=== PATIENT | female | born 1935 | race Caucasian/White ===

== ENCOUNTER 2018-03-05 03:40 | Emergency (ER) | payer MEDICAID ==
[~2018-03-05] VITALS: Ht 152.4 cm; Wt 75.7 kg
[2018-03-05 03:47] VITALS: Ht 152.4 cm; Wt 75.7 kg
[2018-03-05 04:50] LABS: BASOPHIL % 0.4 % (0-2); PLATELET COUNT 245 x10^3mcL (130-400); RED CELL DISTRIBUTION WIDTH 13.9 % (11.5-14.5)
[2018-03-05 05:24] LABS: UA SPECIFIC GRAVITY <=1.005 (1.005-1.035); microscopic required? YES; urine erythrocyte NEGATIVE (NEGATIVE)
[2018-03-05 05:27] LABS: CHLORIDE SERUM 99 mmol/L (98-107); SODIUM SERUM 137 mmol/L (136-145)
[2018-03-05 05:28] LABS: ALBUMIN 3.8 g/dL (3.4-5.0); ALT/SGPT 32 U/L (14-59); AST/SGOT 26 U/L (15-37); BILIRUBIN TOTAL 0.4 mg/dL (0.20-1.00); CALCIUM 9.2 mg/dL (8.5-10.1); CARBON DIOXIDE 27 mmol/L (21-32); CREATININE SERUM 0.7 mg/dL (0.6-1.0); GLUCOSE SERUM 120 mg/dL (74-106)
[2018-03-05 05:29] LABS: ALKALINE PHOSPHATASE 100 U/L (46-116); LIPASE 61 IU/L (73-393)
[2018-03-05 07:32] VITALS: BP 140/68
== END 2018-03-05 07:32 | disposition home or self-care (01) ==
LOC: ED 03:40
PROVIDERS: Emergency Medicine
DX: E87.6 Hypokalemia (principal); I10 Essential (primary) hypertension; E11.9 Type 2 diabetes mellitus without complications
CPT/HCPCS: 82962; J7040; Q0092

== ENCOUNTER 2019-01-14 00:37 | Inpatient (IN) | payer MEDICAID ==
[~2019-01-14] VITALS: Ht 149.9 cm; Wt 78.0 kg
[2019-01-14 00:52] VITALS: Ht 149.9 cm; Wt 78.0 kg
--- NOTE | 2019-01-14 01:06 | NUR ---
PT AAOX4, NO S/S OF DISTESS NOTED, RESPIRATIONS EVEN AND UNLABORED. PER PT DAUGHTER PT C/O L ARM AND CHEST PAIN SINCE 0800. PT DESCRIBES THE PAIN PRESSURE AND RADIATES TO LEFT SIDE OF THE STOMACH. PT REPORTS SIMILIAR PAIN TO THE LEFT SHOULDER FROM "ARTHRITIS". PT HOOKED UP TO SUPERVISOR FERTILIZER, NSR. PT HOOOKED UP TO PULSE OX, PT SAT @ 97% ON RA. DR. MAY AT BEDSIDE PERFORMING MSE.
--- NOTE | 2019-01-14 01:44 | NUR ---
PT DENIES CHEST PAIN 5 MIN AFTER THE ADMINISTRATION OF 40. TAB OF NITROSTAT SL
[2019-01-14 01:48] LABS: BASOPHIL % 1.2 % (0-2); PLATELET COUNT 235 x10^3mcL (130-400); RED CELL DISTRIBUTION WIDTH 13.4 % (11.5-14.5)
[2019-01-14 01:52] LABS: CALCIUM 9.1 mg/dL (8.5-10.1); CARBON DIOXIDE 30.2 mmol/L (21-32); CHLORIDE SERUM 100 mmol/L (98-107); CREATININE SERUM 0.7 mg/dL (0.6-1.0); GLUCOSE SERUM 128 mg/dL (74-106); POTASSIUM SERUM 3.7 mmol/L (3.5-5.1); SODIUM SERUM 136 mmol/L (136-145)
--- NOTE | 2019-01-14 01:59 | NUR ---
PT AMBULATED TO AND FROM BATHROOM WITH STEADY GAIT. PT INSTRUCTED TO GIVE URINE SAMPLE AND HOW TO GIVE GIVE CLEAN CATCH SAMPLE.
[2019-01-14 02:01] LABS: ALBUMIN 3.9 g/dL (3.4-5.0); ALKALINE PHOSPHATASE 112 U/L (46-116); ALT/SGPT 26 U/L (14-59); AST/SGOT 20 U/L (15-37); BILIRUBIN TOTAL 0.3 mg/dL (0.20-1.00)
[2019-01-14 02:02] LABS: TOTAL PROTEIN, SERUM 8.3 g/dL (6.4-8.2)
--- NOTE | 2019-01-14 03:09 | NUR ---
XRAY AT BEDSIDE PERFORMING MSE.
--- NOTE | 2019-01-14 03:48 | NUR ---
PT SITTING UP IN BED, TALKING WITH DAUGHTER AT BEDSIDE. NO S/S OF DISTRESS NOTED.
--- NOTE | 2019-01-14 04:28 | NUR ---
PT C/O SHOUDLER PAIN RATED 8/10. PT REPORTS SHE THINKS PAIN IS ARTHRITIS PAIN SHE REGULARLY EXPERIENCES. DR MAY NOTIFIED AND PRESCRIBED MORPHINE IV. PT REFUSED STATING SHE HAS HAD ADVERSE REACTIONS TO THE MEDICAITON OF LOW BP, N/V DIZZINESS AND SWEATING. PT AND FAMILY EDUCATED ON THE BENEFITS AND RISKS OF REFUSING MEDICATION. PT EDUCATED ON SYMPTOMS OF [place]. DR MAY MADE AWARE AND PRESCRIBED NORCO 5/325 PO. PT ADMINISTERED MEDICATION.
--- NOTE | 2019-01-14 05:02 | NUR ---
PT ASLEEP IN BED, VISIBLE RISE AND FALL OF CHEST, RESPIRATIONS EVEN AND UNLABORED. PT IS EASILY AROUSABLE AND REPORTS PAIN IN HER SHOULDER HAS GONE AWAY AND DENIES PAIN AT THIS TIME.
[2019-01-14] MEDS ORDERED: GLUCOTROL10 MG PO (05:15)
[2019-01-14] MEDS ORDERED: SIMVASTATIN20 M1 PO (05:15)
[2019-01-14] MEDS ORDERED: NOR10 PO (05:16)
[2019-01-14] MEDS ORDERED: METFORMIN HCL1000 MG PO (05:16)
[2019-01-14] MEDS ORDERED: JANUVIA100 M1 PO (05:17)
[2019-01-14] MEDS ORDERED: COZAAR100 MG PO (05:17)
--- NOTE | 2019-01-14 06:17 | NUR ---
PT SLEEPING, EASILY AROUSABLE. DAUGHTER IS AT BEDSIDE.
--- NOTE | 2019-01-14 07:22 | NUR ---
REPORT RECEIVED FROM PAT CHANDLER
--- NOTE | 2019-01-14 08:10 | NUR ---
PT GIVEN BRAKFAST TRAY. SITTING HIGH FOWLERS EATING WITH VSS AND NO DISTRESS NOTED
--- NOTE | 2019-01-14 09:22 | NUR ---
REPORT GIVEN TO MARYJANE STEWART
--- NOTE | 2019-01-14 09:38 | NUR ---
RECEIVED PATIENT FROM ER NURSE AT THIS TIME. PATIENT ABLE TO AMBULATE FROM GURNEY TO BED WITH NO ASSISTIVE DEVICES. PATIENT A/O X4 AND ABLE TO MAKE NEEDS KNOWN. BREATHING EVEN AND UNLABORED. NO RESPIRATORY DISTRESS OR DISCOMFORT NOTED. PATIENT DENIES CHEST PAIN AT THIS TIME. TELE [address] PULSES PALPABLE. NO EDEMA NOTED. BOWEL SOUNDS ACTIVE BM X1 TODAY. VOIDS FREELY WITH NO C/O BURNING/DISCOMFORT AT THIS TIME. IV TO LEFT HAND PATENT AND INTACT. ALL QUESTIONS AND CONCERNS ADDRESSED. FAMILY AT BEDSIDE. ALL NEEDS ATTENDED TO. WILL CONTINUE TO MONITOR
[2019-01-14 10:35] VITALS: BP 174/68
[2019-01-14 13:40] VITALS: BP 131/50
--- NOTE | 2019-01-14 14:07 | NUR ---
PATIENT STABLE TO BE DISCHARGED TO HOME. DISCHARGE INSTRUCTIONS GIVEN WELL EDUCATION. INSTRUCTED PATIENT AND FAMILY ABOUT FOLLOW UP APPOINTMENT. THEY VERBALIZE UNDERSTANDING. IV REMOVED WITH CATH INTACT. ID BANDS REMOVED. TELE MONITOR 13 REMOVED AND RETURNED TO DIGITAL MEDIA REPRESENTATIVE. ALL BELONGINGS WITH PATIENT. ALL QUESTIONS AND CONCERNS ADDRESSED. ALL NEEDS ATTENDED TO. ESCORTED DOWN TO THE LOBBY BY RN AT THIS TIME
--- NOTE | 2019-01-14 14:34 | NUR ---
Discount pharmacy card and list to low cost medical clinics given to patient by Juan.
== END 2019-01-14 14:07 | disposition home or self-care (01) | DRG 346 ==
LOC: ED 00:37 → DU 04:13
PROVIDERS: Emergency Medicine; ADMIT Family Medicine
DX: M06.812 Other specified rheumatoid arthritis, left shoulder (principal); E11.65 Type 2 diabetes mellitus with hyperglycemia; R07.89 Other chest pain; I10 Essential (primary) hypertension; Z79.84 Long term (current) use of oral hypoglycemic drugs; Z68.34 Body mass index [BMI] 34.0-34.9, adult
CPT/HCPCS: 83880; 85378; Q0092

== ENCOUNTER 2019-10-20 08:23 | Inpatient (IN) | payer MEDICAID ==
[~2019-10-20] VITALS: Ht 149.9 cm; Wt 76.3 kg
[~2019-10-20 08:23] MED LIST: COZAAR100 MG PO; GLUCOTROL10 MG PO; JANUVIA100 M1 PO; METFORMIN HCL1000 MG PO; NOR10 PO; SIMVASTATIN20 M1 PO
[2019-10-20 08:26] VITALS: Ht 149.9 cm; Wt 76.3 kg
[2019-10-20 09:04] LABS: BASOPHIL % 0.2 % (0-2); PLATELET COUNT 232 x10^3mcL (130-400); RED CELL DISTRIBUTION WIDTH 13.6 % (11.5-14.5)
[2019-10-20 09:19] LABS: CALCIUM 9.2 mg/dL (8.5-10.1); CARBON DIOXIDE 28.7 mmol/L (21-32); CHLORIDE SERUM 100 mmol/L (98-107); CREATININE SERUM 0.7 mg/dL (0.6-1.0); GLUCOSE SERUM 307 mg/dL (74-106); POTASSIUM SERUM 3.7 mmol/L (3.5-5.1); SODIUM SERUM 136 mmol/L (136-145)
[2019-10-20 09:23] LABS: ALBUMIN 3.7 g/dL (3.4-5.0); ALKALINE PHOSPHATASE 123 U/L (46-116); ALT/SGPT 23 U/L (14-59); AST/SGOT 11 U/L (15-37); BILIRUBIN TOTAL 0.4 mg/dL (0.20-1.00)
[2019-10-20 09:24] LABS: TOTAL PROTEIN, SERUM 8.3 g/dL (6.4-8.2)
[2019-10-20 09:46] LABS: microscopic required? YES; urine erythrocyte TRACE (NEGATIVE)
[2019-10-20 10:13] LABS: MAGNESIUM 1.9 mg/dL (1.8-2.4); T4(THYROXINE) 9.1 ug/dL (4.7-13.3)
[2019-10-20] MEDS ORDERED: SYLVANT100 MG PO (12:17)
[2019-10-20] MEDS ORDERED: SIMVASTATIN20 M1 PO (12:17)
[2019-10-20] MEDS ORDERED: ZITHROMAX Z-PA250 MG PO (12:18)
[2019-10-20] MEDS ORDERED: MICROZIDE12.5 MG PO (12:18)
[2019-10-20] MEDS ORDERED: METHYLPREDNISOLO PO (12:18)
[2019-10-20 15:37] VITALS: BP 166/106
[2019-10-20 21:08] VITALS: BP 140/56
[2019-10-21 05:57] VITALS: BP 143/63
[2019-10-21 06:48] LABS: BASOPHIL % 0.3 % (0-2); PLATELET COUNT 233 x10^3mcL (130-400); RED CELL DISTRIBUTION WIDTH 13.9 % (11.5-14.5)
[2019-10-21 07:09] LABS: CALCIUM 9.1 mg/dL (8.5-10.1); CARBON DIOXIDE 27.4 mmol/L (21-32); CHLORIDE SERUM 103 mmol/L (98-107); CREATININE SERUM 0.6 mg/dL (0.6-1.0); GLUCOSE SERUM 151 mg/dL (74-106); MAGNESIUM 2.1 mg/dL (1.8-2.4); PHOSPHOROUS 3.3 mg/dL (2.5-4.9); POTASSIUM SERUM 3.7 mmol/L (3.5-5.1); SODIUM SERUM 138 mmol/L (136-145)
[2019-10-21 09:28] VITALS: BP 141/60
[2019-10-21 12:00] VITALS: BP 138/77
[2019-10-21] MEDS ORDERED: LEVAQUIN500 M1 PO (15:13)
[2019-10-21 15:50] VITALS: BP 138/77
== END 2019-10-21 16:33 | disposition home or self-care (01) | DRG 723 ==
LOC: ED 08:23 → DU 13:17
PROVIDERS: Emergency Medicine; ADMIT Student in an Organized Health Care Education/Training Program
DX: B34.9 Viral infection, unspecified (principal); E11.65 Type 2 diabetes mellitus with hyperglycemia; E86.0 Dehydration; I16.0 Hypertensive urgency; J20.9 Acute bronchitis, unspecified; R09.02 Hypoxemia; E78.00 Pure hypercholesterolemia, unspecified; K42.9 Umbilical hernia without obstruction or gangrene; Z68.32 Body mass index [BMI] 32.0-32.9, adult; Z79.84 Long term (current) use of oral hypoglycemic drugs
CPT/HCPCS: 36600; 82962; 87804; 97116-GP; G0378; J0456; J0696; J1815; J1956; J7613; J7644; Q0092